=== PATIENT | female | born 1980 | race Caucasian/White ===

== ENCOUNTER → 2019-06-09 | Outpatient (CLI) | payer OTHER ==
[~2019-06-09] MED LIST: AMBIEN 10MG10 MG PO; AMBIEN 5MG TABLE5 MG PO; ATIVAN 0.50.5 MG/TAB PO; BACTRIM DS 8001 TAB PO; CEPHALEXIN500 M1 PO; FLEXERIL 1010 MG/TAB PO; GLUCOPHAGE500 MG/TAB PO; IMITREX ST6 MG/0.5 M SC; IMITREX100 MG PO; LOVENOX 4040 MG/0.4 SQ; MAXALT10 MG SL; NO HOME MEDICATIONS; NORCO 325 MG-51 TAB PO; PAXIL 20MG20 MG PO; TEFLARO 60600 MG/VIA IV; [UNRECOGNIZED DRUG - OTHER] PO
== END ==
LOC: ZCOL.LAB 15:29
DX: T14.8XXA Other injury of unspecified body region, initial encounter (principal); L98.499 Non-pressure chronic ulcer of skin of other sites with unspecified severity; L73.2 Hidradenitis suppurativa

== ENCOUNTER 2019-06-10 08:02 | Outpatient (RCR) | payer OTHER ==
[~2019-06-10] VITALS: Ht 175.3 cm; Wt 109.4 kg
[~2019-06-10 08:02] MED LIST changes: -FLEXERIL 1010 MG/TAB PO; -MAXALT10 MG SL; -PAXIL 20MG20 MG PO
[2019-06-10 09:06] LABS: BASO % 0.5 % (0.0-2.0); EOS # 0.2 (0.0-0.7); EOS % 4.1 % (0-4.0); GRAN # 1.8 (1.4-6.5); GRAN % 47.2 % (42.2-75.2); LYMPH # 1.5 (1.2-3.4); LYMPH % 39.2 % (20.0-51.0); MEAN CELL VOLUME 80 fl (80.0-100.0); MEAN CORPUSCULAR HEMOGLOBIN 25 pg (27.0-31.0); MEAN CORPUSCULAR HGB CONC 31 g/dl (33.0-37.0); MEAN PLATELET VOLUME 11.3 fl (7.4-10.4); MONO # 0.3 (0.1-0.6); MONO % 8.7 % (1.7-9.3); PLATELET COUNT 172 K/mm3 (130-400); RED BLOOD COUNT 4.03 M/mm3 (4.10-5.30); REDCELL DISTRIBUTION WIDTH-CV 17.4 % (11.5-14.5)
[2019-06-10 09:07] LABS: HEMATOCRIT 32.2 % (37.0-47.0)
[2019-06-10] MEDS ORDERED: PAXIL 20MG20 MG PO (09:14)
[2019-06-10 09:15] LABS: ALANINE AMINOTRANSFERASE 19 U/L (4-34); ALBUMIN 3.8 gm/dL (3.5-5.0); ALKALINE PHOSPHATASE 84 U/L (50-136); ANION GAP 3 mmol/L (7-16); AST,SGOT 28 U/L (15-37); BILIRUBIN,TOTAL 0.4 mg/dL (0.0-1.0); BLOOD UREA NITROGEN 16 mg/dL (7-17); CALCIUM 9.2 mg/dL (8.4-10.2); CARBON DIOXIDE 27 mmol/L (22-30); CHLORIDE 106 mmol/L (98-107); CREATININE, serum 0.78 (0.52-1.25); GLUCOSE 92 mg/dL (74-106); POTASSIUM 4.3 mmol/L (3.4-5.0); SODIUM 136 mmol/L (137-145)
[2019-06-10] MEDS ORDERED: FLEXERIL 1010 MG/TAB PO (09:15)
[2019-06-10 09:16] LABS: C-REACTIVE PROTEIN < 0.5 mg/dL (0.0-0.9)
[2019-06-10] MEDS ORDERED: MAXALT10 MG SL (09:17)
[2019-06-10 09:25] VITALS: BP 133/78; PULSE 77; TEMP 98.1
[2019-06-10 09:28] LABS: ERYTHROCYTE SEDIMENTATION RATE 14 mm/hr (0-20)
--- NOTE | 2019-06-10 10:07 | NUR ---
Per pt report she has had teflaro before with no issues.Abx complete.Pt denies needs,requests to go.Pt discharged ambulatory.
== END 2019-06-10 10:08 | disposition home or self-care (01) ==
LOC: EUO 08:02
PROVIDERS: Nurse Practitioner
DX: Z45.2 Encounter for adjustment and management of vascular access device (principal); T14.8XXA Other injury of unspecified body region, initial encounter; L73.2 Hidradenitis suppurativa; L98.499 Non-pressure chronic ulcer of skin of other sites with unspecified severity
CPT/HCPCS: C1751; J0712

== ENCOUNTER → 2019-06-30 | Outpatient (CLI) | payer OTHER ==
[~2019-06-30] MED LIST changes: +FLEXERIL 1010 MG/TAB PO; +MAXALT10 MG SL; +PAXIL 20MG20 MG PO
== END ==
LOC: ZCOL.LAB 15:58
DX: L08.9 Local infection of the skin and subcutaneous tissue, unspecified (principal); R52 Pain, unspecified

== ENCOUNTER 2019-07-14 11:30 | Outpatient (RCR) | payer OTHER ==
[2019-06-29 14:18] LABS: BASO % 0.6 % (0.0-2.0); EOS # 0.2 (0.0-0.7); EOS % 3.5 % (0-4.0); GRAN # 2.5 (1.4-6.5); HEMOGLOBIN 10.8 g/dl (12.5-16.0); LYMPH # 1.5 (1.2-3.4); LYMPH % 33.3 % (20.0-51.0); MEAN CELL VOLUME 82 fl (80.0-100.0); MEAN CORPUSCULAR HEMOGLOBIN 25 pg (27.0-31.0); MEAN CORPUSCULAR HGB CONC 31 g/dl (33.0-37.0); MONO # 0.4 (0.1-0.6); MONO % 8.4 % (1.7-9.3); PLATELET COUNT 213 K/mm3 (130-400); RED BLOOD COUNT 4.32 M/mm3 (4.10-5.30)
[2019-06-29 14:19] LABS: HEMATOCRIT 35.2 % (37.0-47.0)
[2019-06-29 14:33] LABS: ALANINE AMINOTRANSFERASE 29 U/L (4-34); ALKALINE PHOSPHATASE 95 U/L (50-136); ANION GAP 4 mmol/L (7-16); AST,SGOT 36 U/L (15-37); BILIRUBIN,TOTAL 0.3 mg/dL (0.0-1.0); BLOOD UREA NITROGEN 18 mg/dL (7-17); CALCIUM 9.3 mg/dL (8.4-10.2); CARBON DIOXIDE 22 mmol/L (22-30); CHLORIDE 109 mmol/L (98-107); CREATININE, serum 0.91 (0.52-1.25); GLUCOSE 81 mg/dL (74-106); POTASSIUM 5.2 mmol/L (3.4-5.0); SODIUM 136 mmol/L (137-145); TOTAL PROTEIN 7.5 gm/dL (6.4-8.2)
[2019-06-29 14:34] LABS: C-REACTIVE PROTEIN < 0.5 mg/dL (0.0-0.9)
[2019-06-29 14:39] LABS: ERYTHROCYTE SEDIMENTATION RATE 28 mm/hr (0-20)
[2019-06-29 15:12] VITALS: BP 104/65; PULSE 92; TEMP 98
[2019-07-08 13:09] VITALS: BP 105/65; PULSE 75; TEMP 98.3
[2019-07-08 13:25] LABS: BASO % 0.6 % (0.0-2.0); EOS # 0.2 (0.0-0.7); GRAN # 2.7 (1.4-6.5); GRAN % 56.7 % (42.2-75.2); HEMOGLOBIN 10.1 g/dl (12.5-16.0); LYMPH # 1.5 (1.2-3.4); LYMPH % 32.1 % (20.0-51.0); MEAN CELL VOLUME 81 fl (80.0-100.0); MEAN CORPUSCULAR HEMOGLOBIN 25 pg (27.0-31.0); MEAN CORPUSCULAR HGB CONC 31 g/dl (33.0-37.0); MEAN PLATELET VOLUME 11.4 fl (7.4-10.4); MONO # 0.3 (0.1-0.6); MONO % 6.4 % (1.7-9.3); PLATELET COUNT 183 K/mm3 (130-400); RED BLOOD COUNT 4.06 M/mm3 (4.10-5.30); REDCELL DISTRIBUTION WIDTH-CV 17.3 % (11.5-14.5)
[2019-07-08 13:29] LABS: HEMATOCRIT 32.9 % (37.0-47.0)
[2019-07-08 13:40] LABS: ALBUMIN 3.9 gm/dL (3.5-5.0); BILIRUBIN,TOTAL 0.4 mg/dL (0.0-1.0); CALCIUM 9.3 mg/dL (8.4-10.2); CREATININE, serum 0.91 (0.52-1.25); POTASSIUM 4.1 mmol/L (3.4-5.0); TOTAL PROTEIN 7.2 gm/dL (6.4-8.2)
--- NOTE | 2019-07-08 13:40 | NUR ---
here for cares. Patient has messed appointments for PICC catheter. Patient has a left upper arm PICC intact with seeping clear fluid underneath the dressing. She has a redness around the outer edges of the dressing. has been performing cares including dressing changes. according to the , the supplies percent from [employer] are not sufficient due to the fact that his life hands are extremely large. There are having difficulty in maintaining a sterile technique with dressing changes. Advised patient to continue with care nurse in the express unit. I did contact Jennifer this practitioner at Dr. Chavez's office and explained the situation. Advised to start patient on a low-dose prednisone to. Include up this diaper rash appearance under the dressing. Explained the plan to the patient. With sterile technique left upper arm PICC dressing change done with insertion site cleansed with ChloraPrep 1, site looks good no redness or swelling noted. Chlorhexidine impregnated disc applied, StatLock, and dressing applied that has a padding. Tegaderm applied. Patient instructed to keep dressing in place until she is seen on Thursday. Also advised to contact physician if she experiences any problems with adding prednisone to her medication list since she is on methotrexate. Patient voiced understanding of instructions. patient has a doctor's appointment next . We'll reevaluate patient's dressing on Thursday and then hopefully we'll see her after her doctor's appointment on . Patient had numerous excuses as to why she was not able to make dressing change appointments in the express unit last week.
[2019-07-11 14:00] VITALS: BP 102/69; PULSE 69; TEMP 98.4
--- NOTE | 2019-07-11 14:00 | NUR ---
here for PICC cares. Patient reported that dressing placed on Thursday only lasted until Thursday. changed PICC dressing on Thursday. There is less weeping under the dressing according to the patient. With sterile technique left upper arm PICC dressing change done with insertion site cleansed with ChloraPrep 1, chlorhexidine impregnated disc applied, StatLock, cavilon skin prep, and Tegaderm applied. Dressing applied underneath Tegaderm before it was placed on patient. Site looks good with minimal drainage. Since patient was started on prednisone skin has improved. Patient will contact express unit of dressing change needed tomorrow. She has a doctor's appointment on . Patient showed me a picture of her dressing appearance on Thursday. Advised patient to show physician at appointment. Phone number to express unit given to the patient. She will contact express unit with dressing change needed. Advised daily dressing changes until she is seen by the physician on . No other signs or symptoms reported. No other concerns voiced. Will continue to monitor.
--- NOTE | 2019-07-11 14:07 | NUR ---
Lacie RN with [facility] in to speak with pt and create care plan. It was decided to have the pt come in everyday. Express Unit will draw labs on 07/15/19.
--- NOTE | 2019-07-13 12:59 | NUR ---
Pt was to arrive at 1000 for PICC dressing change. After leaving two messages, finally got a hold of pt. She states " I thought the appointment was at 1330, but my dressing is fine, so I'm not coming" Then states " I will come by after my apppointment with Dr. Tate tomorrow." Made sure this was ok with Lacie HAN and changed appointment to 1130 07/14/19
[~2019-07-14] VITALS: Ht 175.3 cm; Wt 108.4 kg
[2019-07-14] MEDS ORDERED: NORCO 325 MG-51 TAB PO (16:49)
[2019-07-14] MEDS ORDERED: MACROBID 1100 MG/CAP PO (16:50)
--- NOTE | 2019-07-28 12:48 | NUR ---
Per Lacie,PICC line was removed in ER
== END 2019-07-28 12:48 | disposition home or self-care (01) ==
LOC: EUO 11:30
PROVIDERS: Nurse Practitioner
DX: Z45.2 Encounter for adjustment and management of vascular access device (principal); L08.9 Local infection of the skin and subcutaneous tissue, unspecified; R52 Pain, unspecified
CPT/HCPCS: C1751; C1892

== ENCOUNTER 2019-07-14 13:55 | Emergency (ER) | payer OTHER ==
[~2019-07-14] VITALS: Ht 175.3 cm; Wt 109.1 kg
[2019-07-14 15:12] LABS: BASO % 0.5 % (0.0-2.0); EOS # 0.4 (0.0-0.7); EOS % 5.5 % (0-4.0); GRAN # 3.1 (1.4-6.5); GRAN % 48.6 % (42.2-75.2); LYMPH # 2.5 (1.2-3.4); LYMPH % 38.9 % (20.0-51.0); MEAN CELL VOLUME 83 fl (80.0-100.0); MEAN CORPUSCULAR HGB CONC 30 g/dl (33.0-37.0); MEAN PLATELET VOLUME 11.8 fl (7.4-10.4); MONO # 0.4 (0.1-0.6); MONO % 6.2 % (1.7-9.3); PLATELET COUNT 186 K/mm3 (130-400); RED BLOOD COUNT 3.77 M/mm3 (4.10-5.30); REDCELL DISTRIBUTION WIDTH-CV 17.9 % (11.5-14.5)
--- NOTE | 2019-07-14 15:15 | NUR ---
PICC tip sent to lab for culture and sensitivity.
--- NOTE | 2019-07-14 15:15 | NUR ---
Patient had questions regarding if she was going to admitted. Also, what other types of options for vascular access. Explained we will have to wait for lab results and blood culture results before another central line is placed.
[2019-07-14 15:17] LABS: HEMATOCRIT 31.1 % (37.0-47.0); HEMOGLOBIN 9.3 g/dl (12.5-16.0); MEAN CORPUSCULAR HEMOGLOBIN 25 pg (27.0-31.0)
[2019-07-14 15:22] LABS: ALANINE AMINOTRANSFERASE 23 U/L (4-34); ALBUMIN 3.8 gm/dL (3.5-5.0); ALKALINE PHOSPHATASE 90 U/L (50-136); ANION GAP 7 mmol/L (7-16); AST,SGOT 33 U/L (15-37); BILIRUBIN,TOTAL 0.3 mg/dL (0.0-1.0); BLOOD UREA NITROGEN 17 mg/dL (7-17); CALCIUM 8.9 mg/dL (8.4-10.2); CARBON DIOXIDE 25 mmol/L (22-30); CHLORIDE 106 mmol/L (98-107); CREATININE, serum 1.17 (0.52-1.25); GLUCOSE 94 mg/dL (74-106); POTASSIUM 3.6 mmol/L (3.4-5.0); SODIUM 138 mmol/L (137-145)
[2019-07-14 15:36] LABS: C-REACTIVE PROTEIN < 0.5 mg/dL (0.0-0.9)
[2019-07-14 16:01] VITALS: TEMP 97.9
[2019-07-14 16:32] LABS: COLLECTION METHOD CLEAN CATCH
[2019-07-14 16:41] LABS: PH 5 (5-8); URINE APPEARANCE Cloudy; URINE BACTERIA Rare /hpf; URINE BILIRUBIN Negative (NEGATIVE); URINE BLOOD 3+ (NEGATIVE); URINE COLOR Yellow; URINE GLUCOSE Negative (NEGATIVE); URINE KETONE Negative (NEGATIVE); URINE LEUKOCYTE ESTERASE 1+ (NEGATIVE); URINE NITRATE Negative (NEGATIVE); URINE PROTEIN(semi-quant) 1+ (NEGATIVE); URINE RBC >50 /hpf; URINE UROBILINOGEN Negative (NEGATIVE)
[2019-07-14] MEDS ORDERED: NORCO 325 MG-51 TAB PO (16:49)
[2019-07-14] MEDS ORDERED: MACROBID 1100 MG/CAP PO (16:50)
[2019-07-14 17:45] VITALS: BP 113/83; PULSE 89
== END 2019-07-14 17:49 | disposition home or self-care (01) ==
LOC: COL.ER 13:55
PROVIDERS: Emergency Medicine
DX: N39.0 Urinary tract infection, site not specified (principal); M79.10 Myalgia, unspecified site; Z85.3 Personal history of malignant neoplasm of breast
CPT/HCPCS: J0696; J0780; J1170; J1885; J7030

== ENCOUNTER → 2022-12-02 | Outpatient (CLI) | payer OTHER ==
[~2022-12-02] MED LIST changes: +MACROBID 1100 MG/CAP PO
== END ==
LOC: COL.RAD 05:11
DX: M79.662 Pain in left lower leg (principal); M79.89 Other specified soft tissue disorders